=== PATIENT | male | born 1975 | race Caucasian/White ===

== ENCOUNTER 2023-10-15 10:17 | Emergency (ER) | payer OTHER, SELFPAY ==
[2023-10-15 10:31] VITALS: BP 117/73; PULSE 67; RESP 16; TEMP 36.3; O2SAT 99
--- NOTE | 2023-10-15 10:54 | ED.UPPEXIN ---
HPI - Extremity Injury (Upper) General Chief Complaint: Extremity Injury, Upper Stated Complaint: Shoulder Pain Time Seen by Provider: 10/15/23 10:50 Source: patient Mode of arrival: ambulatory Limitations: no limitations History of Present Illness HPI narrative: Jeremy is a 48-year-old male patient presenting to the clinic today with complaints of right anterior shoulder pain this been going on for the past 3 days. He reports no known injury. Is having pain with raising his arm in front and doing a cross-arm test. States that pain seems to be getting worse as he is weightlifting. Related Data Allergies Allergy/AdvReac Type Severity Reaction Status Date / Time poison adri extract Allergy Unknown Verified 04/08/16 16:47 Review of Systems Review of Systems: Pertinent positives per HPI. Patient denies any fever, chills, rash, headache, visual changes, dizziness, cough, runny nose, sore throat, shortness of breath, chest pain, palpitations, nausea, vomiting, diarrhea, constipation, abdominal pain, or any urinary issues. [facility] Family History Family History Father Carcinoma of colon Other Family history of premature coronary heart disease Social History Social History Smoking status: Former smoker Second hand tobacco smoke exposure: No Smoking end date: 10/19/05 Alcohol intake: current Comments At the time of my signature, I reviewed and agree with the nursing past medical, surgical, social, and family history. There is no relevant family history pertinent to the patient complaint. Exam Narrative: General: Well-developed, well nourished, in no apparent distress Head: Normocephalic, atraumatic. Cardio: Regular rate and rhythm, s1 and s2 normal, no murmur appreciated. Resp: Clear to auscultation bilaterally, no rhonchi, rales, wheezing or rubs. Musculoskeletal: No deformity,tender to palpation over the right anterior shoulder, positive cross-arm test, negative empty and full can testing, negative drop-arm test, grossly normal range of motion, muscle strength strong and equal, peripheral pulse strong, no edema, no cyanosis, normal gait and station Course Course Emergency Course: Portions of this record may have been created with voice recognition software. Level of Care: Express Care Visit Vital Signs Vital signs: Vital Signs Temperature 36.3 C L 10/15/23 10:31 Pulse Rate 67 10/15/23 10:31 Respiratory Rate 16 10/15/23 10:31 Blood Pressure 117/73 10/15/23 10:31 Pulse Oximetry 99 10/15/23 10:31 Temperature 36.3 C L 10/15/23 10:31 Pulse Rate 67 10/15/23 10:31 Respiratory Rate 16 10/15/23 10:31 Blood Pressure 117/73 10/15/23 10:31 Pulse Oximetry 99 10/15/23 10:31 Vital signs reviewed MDM - Extremity Injury (Upper) MDM Narrative Medical decision making narrative: At the time of visit patient is resting comfortably on the exam table. Patient appears to be nontoxic. I suspect patient has right anterior shoulder strain/tendinitis. Prescription for Medrol Dosepak was sent to the pharmacy. Supportive measures were discussed with the patient and they voiced understanding discharge instructions and agrees to treatment plan. Return precautions reviewed Differential Diagnosis Differential diagnosis: Likely dislocation of shoulder and other (Shoulder tendinitis, shoulder sprain) Discharge Plan Discharge Clinical Impression: Right anterior shoulder pain Patient Disposition: Home, Self-Care Condition: Stable Instructions: Antibiotic Form, Shoulder Pain (ED) Additional Instructions: I suspect you have inflammation the tendon of your right shoulder. Prescription for Medrol Dosepak was sent to the pharmacy. Wear arm sling x1 week Take any prescription medication only as prescribed. May use heat or ice to the affected area May u
== END 2023-10-15 11:02 | disposition home or self-care (01) ==
PROVIDERS: Emergency Provider Nurse Practitioner Family
DX: M25.511 Pain in right shoulder (principal); Z87.891 Personal history of nicotine dependence
CPT/HCPCS: 99203; A4565; G0463

== ENCOUNTER 2024-04-25 15:27 | Emergency (ER) | payer OTHER, SELFPAY ==
[2024-04-25 15:36] VITALS: BP 103/93; PULSE 74; RESP 18; TEMP 36.8; O2SAT 100
--- NOTE | 2024-04-25 18:34 | ED.EXTPRO ---
HPI - Extremity Problem General Chief complaint: Extremity Problem,Nontraumatic Stated complaint: Right elbow pain Time Seen by Provider: 04/25/24 15:39 Source: patient and RN notes reviewed Mode of arrival: ambulatory Limitations: no limitations History of Present Illness HPI Narrative: Patient presents today complaining of a right elbow pain x3 weeks. Reports his pain is worse now after he has been swinging a hammer and worked out at the gym today. Denies numbness or tingling in the arm or hand. Denies known injury or trauma. He is pain-free at rest, but this increases with movement. He has been taking Aleve without much relief. He has also tried a compression sleeve for the elbow without relief. Related Data Allergies Allergy/AdvReac Type Severity Reaction Status Date / Time poison adri extract AdvReac Mild Hives Verified 04/25/24 15:28 Review of Systems Review of Systems: CONSTITUTIONAL: Denies body aches, fever, chills, or sweats. EYES: Denies visual changes, redness, or discharge. ENT: Denies rhinorrhea, congestion, sore throat, or otalgia. CARDIOVASCULAR: Denies chest pain, palpitations, or edema. RESPIRATORY: Denies cough or dyspnea. GASTROINTESTINAL: Denies abdominal pain, nausea, vomiting, or diarrhea. GENITOURINARY: Denies dysuria or hematuria. SKIN: Denies rash, itching, or wounds. MUSCULOSKELETAL: Denies back pain, or myalgia.+ right elbow pain NEUROLOGIC: Denies headache, numbness, tingling, or weakness. PSYCH: Denies depression or anxiety. PMFSH Family History Family History Father Carcinoma of colon Other Family history of premature coronary heart disease Social History Social History Smoking status: Former smoker Second hand tobacco smoke exposure: No Smoking end date: 10/19/05 Alcohol intake: current Comments At time of signature, I have reviewed and agree with nursing past medical, surgical, social and family history unless otherwise noted. Please see nursing chart for further information. There is no relevant family history pertinent to the presenting complaint Exam Narrative: GENERAL: Well-appearing, well-nourished, and in no acute distress. HEAD: Normocephalic, atraumatic. EYES: EOMI. No redness or drainage. Conjunctivae normal. ENT: Mucous membranes pink and moist. NECK: Normal AROM. CHEST: No respiratory distress. EXTREMITIES: Right elbow: No bony tenderness about the elbow. Soft tissue tenderness extending to the mid forearm to the lateral elbow. No edema, ecchymosis, erythema noted. Pain elicited with P ROM in all directions. Distal sensation intact. Capillary refill normal. Radial pulse normal. SKIN: Warm, dry, no rash. Capillary refill normal. Normal skin turgor. NEURO: No focal deficits. Alert and oriented x3. Gait steady. PSYCH: Normal affect. No signs of depression or anxiety. Course Course Level of Care: Express Care Visit Vital Signs Vital signs: Vital Signs Temperature 98.3 F 04/25/24 15:36 Pulse Rate 74 04/25/24 15:36 Respiratory Rate 18 04/25/24 15:36 Blood Pressure 103/93 H 04/25/24 15:36 Pulse Oximetry 100 04/25/24 15:36 Oxygen Delivery Room Air 04/25/24 15:36 Temperature 98.3 F 04/25/24 15:36 Pulse Rate 74 04/25/24 15:36 Respiratory Rate 18 04/25/24 15:36 Blood Pressure 103/93 H 04/25/24 15:36 Pulse Oximetry 100 04/25/24 15:36 Oxygen Delivery Room Air 04/25/24 15:36 Reviewed MDM - Extremity (Nontraumatic) MDM Narrative Medical decision making narrative: Patient's exam and history consistent with tendinitis. Prescription for prednisone sent to pharmacy. Anticipatory guidance given. Differential Diagnosis Differential diagnosis: Likely other (Bursitis, tendonitis, ligamentous injury, radiculopathy, nerve entrapment) Critical Care Time Critical Care Time C
== END 2024-04-25 15:48 | disposition home or self-care (01) ==
PROVIDERS: Emergency Provider Nurse Practitioner
DX: M77.8 Other enthesopathies, not elsewhere classified (principal); Z87.891 Personal history of nicotine dependence
CPT/HCPCS: 99213; G0463

== ENCOUNTER 2024-05-31 08:32 | Outpatient (CLI) | payer BC, OTHER, SELFPAY ==
--- NOTE | ~2024-05-31 | XR_ITS ---
XR elbow RT min 3V Ordering provider: Joshua Mathur MD History: . Pain in medial right elbow x 1 month, NKI . Comparison: None. FINDINGS: BONES: No acute fracture or dislocation. JOINT SPACES: Osteophytes seen in the coronoid process of the ulna suggestive of mild osteoarthritic changes.. SOFT TISSUES: Unremarkable. No definite joint effusion. IMPRESSION: No acute osseous abnormality of the right elbow. Reviewed, dictated and finalized at location A.
== END 2024-05-31 08:33 | disposition home or self-care (01) ==
LOC: ANHIMG 08:39
PROVIDERS: Visit Provider Orthopaedic Surgery
DX: M25.521 Pain in right elbow (principal)
CPT/HCPCS: 73080